=== PATIENT | female | born 1980 | race Caucasian/White ===

== ENCOUNTER 2017-07-14 12:38 | Day surgery (SDC) | payer OTHER, SELFPAY ==
[2017-07-12 09:06] VITALS: BMI 33.5
[2017-07-14] VITALS (9 sets, daily range): BP systolic 105–128; BP diastolic 69–79; PULSE 69–92; RESP 12–17; TEMP 36–36.9; O2SAT 93–100; BMI 33.0
--- NOTE | 2017-07-14 | PATH_ITS ---
[facility] Accession Number: [id number] . 01 Material submitted: . PART A: ANTERIOR LIP OF CERVIX PART B: POSTERIOR LIP OF CERVIX PART C: LEFT MARGIN PART D: RIGHT MARGIN . 02 Diagnosis: A. Cervix, Anterior Lip, LEEP Biopsy: Focal involvement by low-grade squamous intraepithelial lesion (LSIL/mild dysplasia/ITALO 1). The apparent, inked ectocervical and endocervical margins are negative for dysplasia. There is no evidence of high-grade dysplasia or invasive carcinoma. Changes consistent with previous instrumentation are present. Negative for p16 block immunostaining. . B. Cervix, Posterior Lip, LEEP Biopsy: Focal cytologic atypia suggestive of, but not diagnostic of, low-grade squamous intraepithelial lesion (LSIL/mild dysplasia/ITALO 1). The apparent, inked tissue margins are negative for regions concerning for dysplasia. There is no evidence of high-grade dysplasia or invasive tumor. Negative for p16 block immunostaining. . C. Left Margin, Excision: Squamous mucosa with reactive features; negative for dysplasia and malignancy. No transformation zone identified. Negative for p16 block immunostaining. . D. Right Margin: Focal involvement by low-grade squamous intraepithelial lesion (LSIL/mild dysplasia/ITALO 1). The apparent tissue margins are negative for dysplasia; electrocautery artifact is obscuring. Negative for high-grade dysplasia and invasive tumor. Changes consistent with previous instrumentation are present. Endocervical tissue / transformation zone is present. Negative for p16 block immunostaining. I/07/19/2017 . 02 Comment: This patient's previous Pap smear report ([id number]); 06/21/17) and biopsy reports and slides ([id number]; 07/03/17) are reviewed, and the severe dysplasia present on the previous Pap smear and in the previous biopsies is not identified in the current specimens. These findings do not entirely correlate. . 02 Electronically signed: . Mariluz Malave MD, Pathologist NPI- [id number] . 01 Gross description: . A. The specimen is received in a container of formalin, labeled with the patient's name, designated anterior lip of cervix. The specimen consists of a 1.6 x 1.3 x 0.9 cm portion of cervix. The mucosal surface is pink-theodore, smooth, slightly granular. The margins will be painted with black ink. The specimen is serially sectioned and entirely submitted in cassettes A1 and A2. B. The specimen is received in a container of formalin, labeled with the patient's name, designated posterior lip of cervix. The specimen consists of a focally fragmenting piece of cervical tissue without orientation, measuring 1.4 x 0.8 x 0.4 cm. The margins will be painted with blue ink. Entirely submitted in cassette B1. C. The specimen is received in a container of formalin, labeled with the patient's name, designated left margin. The specimen consists of an unoriented piece of cervix measuring 0.9 x 0.7 x 0.2 cm. The mucosal surface is smooth to slightly granular. The margins are painted with black ink. The specimen is serially sectioned and entirely submitted in cassette C1. D. The specimen is received in a container of formalin, labeled with the patient's name, designated right margin. The specimen consists of two pink-persaud strips of cervical tissue measuring 0.8 x 0.5 cm by less than 0.1 cm and 1.1 x 0.4 x 0.3 cm. The margins will be painted with black ink. The specimen is serially sectioned and entirely submitted in cassette D1. ([id number]) /FRR . 02 Microscopic: . An immunohistochemical stain was performed on blocks A1, A2, B1, C1, and D1 to evaluate for p16 and is negative for block immunostaining. The control stain shows appropriate reactivity. . The absence of p16 block immunostaining mitigates against the presence of high risk HPV DNA in these biopsies. . * This test was developed and its performance characteristics determined by [facility]. It has not been cleared or approved by the U.S. Food and Drug Administration. The FDA has determined that such clearance or approval is not necessary. This test is used for clinical purposes. It should not be regarded as investigational or for research. . . 02 Pathologist provided ICD-10: N87.0 . 02 CPT . 152797, 959288, 440036, 144923, T36303 Performed at: 01 [facility] [address] [id number] MD Madhav Adams MD Phone: [phone] Performed at: 02 [facility] [address] [place] [id number] MD Bob Garcia MD Phone: [phone]
[2017-07-14] MEDS: LACTATED RINGERS 1,000 ML 42 ML IV ×2 (15:30→16:07)
[2017-07-14] MEDS: SCOPOLAMINE 1 PATCH TOP (15:37)
--- NOTE | 2017-07-14 15:56 | SUR.OPER ---
Lithotomy on padded OR bed, head on gel donut on foam square, arms secured on padded arm boards at <90 degrees abduction. Legs secured in padded yellow fins stirrups.
--- NOTE | 2017-07-14 16:27 | PM.GYNOP.1 ---
Operative Date/Time/Diagnoses - Date of procedure: 07/14/17 Time of procedure: 16:27 Pre-op diagnosis: Cervical intraepithelial neoplasia three Post-op diagnosis: same Procedure: Procedures Operation Date: 07/14/17 14:00 Actual Procedures Side Surgeon p LEEP Procedure Jose Martin Batres MD Indications: Cervical intraepithelial neoplasia three no endocervical involved Anesthesia Type: General Operative Notes Findings: Circumferential lesion of ITALO three Closure Type: primary Specimen(s): other Estimated blood loss (mL): 100 Blood products transfused: none Procedure in detail: The patient was placed supine upon the operating table and anesthetized. She was then placed in the dorsal lithotomy position and draped repaired in usual fashion. A plastic size speculum was set in place and attached to vacuum. The cautery was set with a large loop. Using cutting current at 60 the anterior portion of the cervix was removed and sent for pathologic exam. This produced a fairly sizable bleeder. The bleeder was clamped and then doubly suture ligated with two 0 chromic suture. Subsequent LEEP procedures were done on the posterior lip and on right and left margins and all of these were sent for pathologic exam. There is was extensively cauterized. Because of small persistent bleeding for sterdorf type sutures were used of 0 chromic to make sure there was no further bleeding on the cervix. At the end of procedure the wound was entirely dry and there was no bleeding. Patient was taken to the recovery room in satisfactory condition. Complications: none Post-operative Condition: stable Disposition: PACU Plan for aftercare: Office Dr. Beard two weeks
[2017-07-14] MEDS: fentaNYL 100 MCG/2 ML INJ 50 MCG IV ×3 (16:28→16:44)
[2017-07-14] MEDS: OXYCODONE/ACETAMINOPHEN 5/325 TABLET 1 TAB PO (17:14)
--- NOTE | 2017-07-14 17:28 | SUR.PHASEII ---
IV d/c'd at 1721, cathetr
--- NOTE | 2017-07-14 17:31 | SUR.PHASEII ---
IV D\C'd at 1721, catheter ivana, pt. tolerated well.
--- NOTE | 2017-07-14 17:58 | SUR.PHASEII ---
Addendum prior to D/C: pt. beginning to get dressed, got up and stood and reported more bleeding that the last leep procedure Pt. requested to have Dr. Batres notified before she (the pt.) was d/c'd home. Placed call to Dr. Batres cellphone and was able to contact the DrLaney; this author reported pt. symptom of bleeding, pt's friend described it as a facet with a contant drip. Dr. Batres relayed to this author that he wants the pt. to go home and be on bedrest until bleeding minimal to none, and to have the pt. contact Dr. Batres if the pt. feels the need to do so. Pt. and friend agreed with Dr. Batres and feels comfortable enough to proceed with d/c home. Pt. given several XLG etra pads and disposable wipes to take home.
== END 2017-07-14 18:06 | disposition home or self-care (01) ==
PROC: 0UBC7ZZ Excision of Cervix, Via Natural or Artificial Opening (ICD-10-PCS; CPT 57522; principal; 2017-07-14 14:00)
DX: N87.0 Mild cervical dysplasia (principal)
CPT/HCPCS: 57522; 88305; 88307; 88342; J1100; J1885; J2405; J2704; J3010

== ENCOUNTER 2018-01-25 08:20 | Day surgery (SDC) | payer OTHER, SELFPAY ==
[2018-01-24 12:23] VITALS: BMI 29.9
[2018-01-25] VITALS (8 sets, daily range): BP systolic 96–120; BP diastolic 59–76; PULSE 55–76; RESP 8–16; TEMP 36.2–36.9; O2SAT 96–100; BMI 29.9
--- NOTE | 2018-01-25 | PATH_ITS ---
[facility] Accession Number: [id number] . 01 Material submitted: . CERVIX . 02 Diagnosis: Cervix, LEEP Biopsy: High-grade squamous intraepithelial lesion (HSIL/moderate-severe dysplasia/ITALO 2-3) with gland neck involvement is present in the non-sutured tissue fragments designated endocervix on requisition. HSIL focally involves the peripheral and deep margins in one endocervical tissue fragment. At least low grade squamous intraepithelial lesion (LSIL / mild dysplasia / ITALO I) is present in both the 9 to 12 o'clock and the 12 to 3 o'clock quadrants. Please see comment. No invasive tumor identified. Changes consistent with previous instrumentation are present in the oriented tissue fragments. MRV/01/29/2018 . 02 Comment: Findings discussed with Dr. Iza Sheets on 01/29/2018 at approximately 11:20 a.m. No further characterization (i.e. p16 IHC) is necessary at this time. . This patient's previous Pap smear report ([id number], 06/21/2017) is reviewed, and the severely dysplastic cells present on the previous Pap smear could derive from the current biopsy tissue. These findings do correlate. . 02 Electronically signed: . Mariluz Malave MD, Pathologist NPI- [id number] . 01 Gross description: . Received in formalin, labeled LEEP cone biopsy: anterior cervix-long stitch 12 o'clock, posterior cervix short stitch 6 o'clock, unmarked piece: endocervix, are four pieces of surgical tissue. Piece #1 (1.2 cm 12 o'clock to 6 o'clock, 2.2 cm 3 o'clock to 9 o'clock, 0.2 cm superficial to deep) contains a two-tailed long black suture indicating 12 o'clock. The mucosa is theodore-pink smooth and shiny. The resection margin is pale persaud and finely granular. No nodules, masses or lesions are identified. Ink code: black-deep; blue-radial; orange-os/endocervical canal. Section code: Radially sectioned and entirely submitted clockwise from 9 o'clock-(A1) 9 o'clock to 12 o'clock; (A2) 12 o'clock to 3 o'clock. . Piece #2 (2.1 x 0.3 x 0.1 cm) contains a two-tailed black short suture indicating 6 o'clock. The specimen is ragged and difficult to tell the radial orientation. The mucosa is pale theodore-white and dull. The resection margin is pale theodore-persaud and finely granular. No nodules, masses or lesions are identified. The ectocervical and endocervical margins cannot be determined, therefore, the resection margin is inked black. Serially sectioned and entirely submitted in cassettes A3-A4, the half with the suture is in A4. Note: The specimen is partially friable and fragmented upon sectioning. . Piece #3 (1.2 x 0.5 x 0.2 cm) and piece #4 (1.5 x 0.7 x 0.3 cm) are unoriented and have persaud-pink finely granular surfaces. No nodules, masses or lesions are identified. The tissue cannot be oriented, therefore, the resection margins are inked black. Serially sectioned and entirely submitted in cassettes A5 and A6, respectively. ([id number]) /[facility] . 02 Pathologist provided ICD-10: N87.1 . 02 CPT . 107209 Performed at: [address] [facility] [address] [id number] MD Madhav Adams MD Phone: [phone] Performed at: 02 [facility] [address] [place] [id number] MD Keren Champagne MD Phone: [phone]
[2018-01-25] MEDS: LACTATED RINGERS 1,000 ML 42 ML IV (08:32)
--- NOTE | 2018-01-25 09:45 | PM.PREOP ---
Pre-operative Note Interval Note Pre-op Check: Yes History & Physical exam performed today by Physician Changes: No
--- NOTE | 2018-01-25 09:45 | PM.HP.1 ---
History of Present Illness Date Patient Seen: 01/25/18 Time Patient Seen: 09:45 Chief complaint: 10017 LEEP; DX R87.63 Narrative: Patient is a 37-year-old with high-grade GILBERT on Pap with no corresponding dysplasia on colposcopic biopsy Patient has had a previous LEEP cone biopsy of the cervix Patient History Medical History GERD (gastroesophageal reflux disease) (Chronic ~2005) Heavy menstrual period (Chronic ~2012) Migraine headache without aura (Chronic ~1988) Abnormal Pap smear of cervix (Resolved ~2004) ITALO III (cervical intraepithelial neoplasia III) (Resolved) Chicken pox (Resolved ~1989) HPV test positive (Resolved ~2004) Surgical History History of colposcopy (Acute) H/O LEEP (Resolved ~09/2012) History of arthroscopic knee surgery (Resolved ~10/1997) H/O LEEP (Inactive) Family & Social History Social History: household members children lives independently Yes Tobacco & Substance use: Smoking Status Never smoker Meds Home Medications Medication Instructions Recorded Confirmed Type levonorgestrel 20 mcg/24 hr (5 INTRAUTERINE each 09/04/17 01/16/18 History years) intrauterine device Allergies Allergy/AdvReac Type Severity Reaction Status Date / Time hydromorphone [From Dilaudid] AdvReac Severe Vomiting Verified 01/16/18 15:05 Exam Vital Signs (past 8 hours): - 01/25/18 08:33 Temperature 98 F Pulse Rate 76 Respiratory Rate 12 Blood Pressure 120/76 Pulse Oximetry 98 Oxygen Delivery Method Room Air Narrative Exam Narrative: HEENT: No thyromegaly, no anterior cervical or supraclavicular lymphadenopathy. Lungs:Clear to auscultation bilaterally, no wheezes. Cardiovascular: Regular rate and rhythm, no murmurs, rubs, or gallops. Abdomen: No scars. No hepatosplenomegaly. No masses palpable. External genitalia: Normal Vagina: Normal Cervix: Status post LEEP Bimanual exam: 7 Week size uterus. Mobile. Rectal: No masses. Assessment & Plan (1) HGSIL (high grade squamous intraepithelial dysplasia): Current visit: Yes Status: Acute Plan: Assessment/Plan Narrative: Assessment: 37 year old with HGSIL on PAP and no corresponding findings on colposcopic biopsy Plan: LEEP cone biopsy of the cervix The risks, benefits, and alternatives to the procedure were explained to the patient. The risks including bleeding and infection. She understands these risks and agrees to proceed. A full PAR-Q was held and consent form was signed.
[2018-01-25] MEDS: SCOPOLAMINE 1 PATCH TOP (09:46)
--- NOTE | 2018-01-25 10:14 | SUR.OPER ---
Lithotomy on padded OR bed, head on pillow, arms secured on padded arm boards at <90 degrees abduction. Legs secured in padded yellow fins stirrups.
[2018-01-25] MEDS: POTASSIUM IODIDE/IODINE 473 ML SOLUTION TOP (10:21)
[2018-01-25] MEDS: fentaNYL 100 MCG/2 ML INJ 50 MCG IV (11:12)
--- NOTE | 2018-01-25 11:32 | SUR.PHASEII ---
PT ARRIVED TO PHASE II VIA STRETCHER. PT SITTING UP AND TALKING TO RN. PT FRIEND BROUGHT TO BEDSIDE. PT DENIES ANY PAIN/DISCOMFORT AT THIS TIME. PT DENIES ANY NAUSEA. JOLLY-PAD OBSERVED TO C/D/I. PT SITTING UP AND SIPPING ON ERIKA FERMIN. PT APPEARS COMFORTABLE AT THIS TIME. BED IN LOWEST POSITION AND CALL LIGHT GIVEN TO PT.
--- NOTE | 2018-02-23 15:46 | P.OP_ITS ---
Operative Date/Time/Diagnoses Date of procedure: 01/29/18 Time of procedure: 10:30 Pre-op diagnosis: ITALO 3 Post-op diagnosis: same Procedure: Procedures Operation Date: 01/25/18 09:45 Actual Procedures Side Surgeon p LEEP cone biopsy cervix Iza Sheets MD Indications: ITALO 3 Surgeon: Iza Sheets Anesthesia Type: General (LMA) Operative Notes Findings: Lugol's light area circumferentially around the cervical os Closure Type: not applicable Specimen(s): other (Anterior lip with long suture, Posterior lip with short suture) Estimated blood loss (mL): 10 Blood products transfused: none Procedure in detail: After informed consent was obtained, the patient was taken to the operating room where she was placed in the dorsal supine position. After LMA general anesthesia was obtained, the patient was placed in the dorsal lithotomy position and prepped and draped in the usual sterile fashion. A timeout was performed. A platic-coated bivalved speculum was placed into the vagina and a plastic-coated single-toothed tenaculum was placed on the anterior lip of the cervix. Lugol's solution was applied to the cervix. There was a Lugol 's light area surrounding the cervical os. The anterior lip of the cervix was excised using the large loop. This piece was tagged with a long suture. The posterior lip of the cervix was excised and was tagged with a short suture. The ball cautery was used for hemostasis. Sponge, lap, and instrument counts were correct x2. The patient tolerated the procedure well, and was taken to PACU in stable condition. Complications: none Post-operative Condition: stable Disposition: PACU Plan for aftercare: Home after recovery
== END 2018-01-25 12:01 | disposition home or self-care (01) ==
PROVIDERS: Visit Provider Obstetrics & Gynecology
PROC: 0UBC7ZZ Excision of Cervix, Via Natural or Artificial Opening (ICD-10-PCS; CPT 57522; principal; 2018-01-25 09:45)
DX: N87.1 Moderate cervical dysplasia (principal); G43.909 Migraine, unspecified, not intractable, without status migrainosus
CPT/HCPCS: 57522; J1100; J1885; J2250; J2405; J2704; J3010

== ENCOUNTER 2018-04-06 08:26 | Day surgery (SDC) | payer OTHER, SELFPAY ==
[2018-04-06] VITALS (18 sets, daily range): BP systolic 104–130; BP diastolic 60–79; PULSE 51–73; RESP 12–18; TEMP 36.3–36.8; O2SAT 97–100; BMI 28.8
--- NOTE | 2018-04-06 | PATH.2_ITS ---
[facility] Accession Number: [id number] . 01 Material submitted: . UTERUS WITH BOTH FALLOPIAN TUBES . 02 Diagnosis: Uterus and Bilateral Fallopian Tubes, Laparoscopic Assisted Vaginal Hysterectomy with Bilateral Salpingectomy (weight 158 grams): Mild patchy involvement by low-grade squamous intraepithelial lesion (LSIL/mild dysplasia/ITALO 1). Negative for residual high-grade squamous intraepithelial lesion and negative for invasive tumor. Negative for p16 block immunostaining. Changes consistent with previous instrumentation are present. Endometrial cavity with a T-shaped IUD by gross examination. Myometrium with no significant histomorphologic abnormality. Uterine serosa with no significant histomorphologic abnormality. Two Fallopian tubes with no significant histomorphologic abnormality. BFI/04/13/2018 . 02 Comment: This patient's previous biopsy ([id number]; 01/25/18) was reviewed and findings regarding HSIL involvement at peripheral and deep margins were confirmed. . 02 Electronically signed: . Mariluz Malave MD, Pathologist NPI- [id number] . 01 Gross description: . . Received in formalin, labeled uterus + both fallopian tubes, is a uterus (158 g, 5.2 cm AP, 9.5 cm SI, 6.1 cm ML) with attached fimbriated fallopian tubes (right: Length-5.2 cm, diameter-0.5 cm; left: Length-5.3 cm, diameter-0.5 cm). The ovaries are absent. The cervix (3.1 cm AP, 3.7 cm ML) has a vaginal cuff (up to 1.5 cm in depth), a transverse os, and a patent endocervical canal. The endometrial cavity contains a white plastic, T-shaped IUD. The endometrium (average thickness-0.1 cm) is persaud-pink, smooth, and flat. The myometrium (thickness-2.4 cm) is persaud-white and unremarkable. The serosa is theodore-persaud, smooth, and shiny. The fallopian tubes have theodore-purple, smooth, shiny serosa and persaud unremarkable lumens. Section code: (A1) anterior cervix; (A2) posterior cervix; (A3-A4) anterior endomyometrium; (A5, A6) posterior endomyometrium; (A7) right fallopian tube, product representative serial section; (A8) right fimbria, bivalved, entirely submitted; (A9) left fallopian tube, product representative serial section; (A10) left fimbria, bivalved, entirely submitted. (:[id number]) . Additional sections: The remaining cervix is radially sectioned and entirely clockwise from 12 o'clock - (A11-A15) 12 o'clock to 3 o'clock; (A16-A21) 3 o'clock to 6 o'clock; (A22-A26) 6 o'clock to 9 o'clock; (A27-A32) 9 o'clock to 12 o'clock. The cervix is now entirely submitted. (:cmc10 [id number]) /FRR . 02 Microscopic: . An immunohistochemical stain was performed to evaluate for p16 on blocks A2, A16, A23, and A26, and each stain is negative for block immunostaining. The control stain shows appropriate reactivity. . The absence of p16 block immunostaining mitigates against the presence of high risk HPV DNA in this biopys. . * This test was developed and its performance characteristics determined by [facility]. It has not been cleared or approved by the U.S. Food and Drug Administration. The FDA has determined that such clearance or approval is not necessary. This test is used for clinical purposes. It should not be regarded as investigational or for research. . . 02 Pathologist provided ICD-10: N87.0 . 02 CPT . 289638, S07283, S25456 Performed at: 01 [facility] [address] [place] [address], [place], [place] [id number] MD Madhav Adams MD Phone: [phone] Performed at: 02 [facility] [address] [place], [place] [id number] MD Keren Champagne MD Phone: [phone]
--- NOTE | 2018-04-06 07:56 | PM.PREOP ---
Pre-operative Note Interval Note History & Physical reviewed/Exam performed by Physician: Yes Changes to H&P: No
[2018-04-06] MEDS: LACTATED RINGERS 1,000 ML 42 ML IV ×3 (09:05→13:53)
[2018-04-06] MEDS: SCOPOLAMINE 1 PATCH TOP (10:16)
[2018-04-06] MEDS: MIDAZOLAM 2 MG/2 ML VIAL IV (10:22)
[2018-04-06] MEDS: CEFAZOLIN 2 GM/100 ML FROZ.PIGGY IV (10:23)
--- NOTE | 2018-04-06 10:27 | SUR.PREOP ---
1022 Rx given per anesthesia after Dr. Sheets spoke with the patient. Continuous pulse ox on prior to administration. Patient remains sitting up, talking with friend. Had nausea with she stated was related to anxiety. States that she feels better after the rx.
--- NOTE | 2018-04-06 10:55 | SUR.PREOP ---
Patient stated on arrival that she was currently on her period and that she removed her tampon.This was reported to the sewing machine operator floorperson prior to taking the patient into the room.
--- NOTE | 2018-04-06 11:14 | SUR.OPER ---
Lithotomy on padded OR bed. [place] Pad Positioner under torso. Head on pillow, arms padded and tucked at sides. Legs secured in padded yellow fins stirrups.
[2018-04-06] MEDS: BUPIVACAINE 0.5% W/ EPI (PF) VIAL 30 ML INJ (11:33)
[2018-04-06] MEDS: fentaNYL 100 MCG/2 ML INJ 50 MCG IV ×2 (12:29→12:40)
[2018-04-06] MEDS: HYDROMORPHONE 2 MG INJ 0.25 MG IV ×8 (12:45→13:25)
[2018-04-06] MEDS: LORazepam 2 MG/ML SYRINGE 0.5 MG IV ×2 (12:54→13:16)
[2018-04-06] MEDS: OXYCODONE/ACETAMINOPHEN 5/325 TABLET 2 TAB PO ×3 (13:48→18:31)
[2018-04-06] MEDS: LACTATED RINGERS 1,000 ML 100 ML IV (14:39)
--- NOTE | 2018-04-06 15:02 | PC.NURSE ---
Pt admitted to floor aroung 1400. Pt had lap hysterectomy. 3 small incisions cdi. Pt given 2 percocet down in pacu and denies pain at this time. She has a warm pack in place and states that she is only having some mild cramping. IV to L.hand with LR at 100cc/hr. SCDs in place. Pt denies nausea and has a scop patch in place. She is comfortable and visiting with her friends at this time.
[2018-04-06] MEDS: KETOROLAC 30 MG/ML VIAL IV (18:24)
[2018-04-06] MEDS: DOCUSATE 250 MG CAPSULE PO (20:42)
[2018-04-07 00:20] VITALS: BP 110/60; PULSE 55; RESP 17; TEMP 36.7; O2SAT 98
[2018-04-07] MEDS: OXYCODONE/ACETAMINOPHEN 5/325 TABLET 2 TAB PO ×4 (00:22→11:46)
[2018-04-07] MEDS: KETOROLAC 30 MG/ML VIAL IV ×2 (00:23→06:37)
[2018-04-07] MEDS: LACTATED RINGERS 1,000 ML 100 ML IV (00:33)
[2018-04-07 04:33] VITALS: BP 101/64; PULSE 56; RESP 17; TEMP 36.6; O2SAT 98
--- NOTE | 2018-04-07 05:06 | PC.NURSE ---
Pt hypotensive and janet per baseline per patient. She rates pain 6/10 and requested two prn Percocet to be given as written q 4 hours, and to wake her up. No drainage this shift. Voiding qs clear yellow. A and O x 4.
[2018-04-07 05:16] LABS: Add Manual Diff / Slide Review NO; Basophils Absolute Auto 0 /uL (0-100); Basophils Percent Auto 0.1 % (0-2); Eosinophils Absolute Auto 0 /uL (0-450); Eosinophils Percent Auto 0.1 % (2-4); Hematocrit 38.5 % (36-46); Hemoglobin 12.3 g/dL (12.0-16.0); Lymphocytes Absolute Auto 1300 /uL (1100-4500); Lymphocytes Percent Auto 10.9 % (25-40); Mean Corpuscular Hemoglobin 24.6 PG (26-34); Mean Corpuscular Volume 76.8 fL (80-100); Monocytes Absolute Auto 700 /uL (0-900); Monocytes Percent Auto 5.4 % (3-14); Neutrophils Absolute Auto 10200 /uL (1500-7000); Neutrophils Percent Auto 83.5 % (50-75); Platelet Count 293 X10^3/uL (150-400); Red Blood Cell Count 5.01 X10^6/uL (4.0-5.2); Red Cell Distribution Width 15.2 % (11.6-14.8); White Blood Cell Count 12.2 X10^3/uL (4.5-11.0)
[2018-04-07 08:37] VITALS: BP 99/49; PULSE 52; RESP 16; TEMP 36.3; O2SAT 97
[2018-04-07] MEDS: DOCUSATE 250 MG CAPSULE PO (09:52)
--- NOTE | 2018-04-07 10:26 | CM.DANOTE ---
[facility] Chart Review/Assessment Patient is a 37 year old female who was admitted on 04/06/18 for [facility]. Pt has [employer] for insurance and her PCP is not listed. EMR was reviewed. Per MD, pt tolerated surgical procedure well by Dr. Sheets and is medically stable to d/c home today with friend support and no identified barriers to discharge. Per licensed reactor operator, no concerns with d/c home today at this time. No SW assessment needed at this time and triage needs prohibited bedside assessment. Plan: Patient to d/c home today via family/friend POV and no SW needs at this time. Please refer if indicated. DARLIN Hart
--- NOTE | 2018-04-07 11:10 | PC.NURSE ---
Pt. up to shower with assistance from friend w/o alicia. Dressed and ready to be discharged.
--- NOTE | 2018-04-07 12:03 | PC.NURSE ---
Hep lock removed without difficulty. Cathetor tip intact. 4 x 4 drsg applied with tape. Discharge orders given and reviewed, with pt. understanding. Comfortable, eating lunch and waiting for friend to come pick her up.
--- NOTE | 2018-04-09 06:53 | PM.GYNOP.1 ---
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 After adequate general endotracheal anesthesia was achieved, she was placed in the dorsal lithotomy position, and prepped and draped in the usual sterile fashion. A timeout was performed. A bivalve speculum was placed into the vagina, and a single-tooth tenaculum was placed on the anterior lip of the cervix. The cervical os was sequentially dilated until the ZUMI uterine manipulator could pass easily into the endometrial cavity. The single-tooth tenaculum was removed from the anterior lip of the cervix, and the bivalve speculum was removed from the vagina. Attention was then turned to the abdomen where 6 mL of half percent Marcaine with epinephrine were injected in the umbilical fold. A 5 mm incision was made. The Verhees needle was placed into the peritoneal cavity, and its placement confirmed by aspiration and drop test. The abdominal cavity was insufflated with 4 L of CO2. The Verhees needle was removed, and a 5 mm trocar was placed without difficulty. Initial inspection of the pelvis revealed the findings noted above. 2 other incisions were made midway between the pubic symphysis and umbilicus 4 cm lateral to the midline. These were 5 mm incisions. Two 5 mm trochars were placed under direct visualization. The right tube was grasped with an atraumatic grasper. The uteroovarian ligament on the right side was cauterized and cut with plasma kinetic. The round ligament and broad ligament were cauterized and cut. This was continued to the level of the uterine arteries. This was repeated on the patient's left side. The instruments were removed from the abdomen. Attention was then turned to the vagina where the ZUMI uterine manipulator was removed from the uterus. The cervix was grasped with a 4 tooth tenaculum. 10 mL of quarter percent Marcaine with epinephrine were injected circumferentially around the cervix. The cervix was circumscribed. The bladder and rectum were dissected off the lower uterine segment and cervix with an open moistened Ray-Haider. The peritoneum was entered sharply with the Metzenbaum scissors anteriorly and a Nora placed. The peritoneum was entered posteriorly with the Metzenbaum scissors and the long weighted speculum was placed into the posterior cul-de-sac. The uterosacral cardinal ligament complexes were clamped, transected, and suture ligated with 0 Vicryl. These were attached to hemostats. The uterine arteries were clamped, transected, and suture ligated with 0 Vicryl. The uterus was handed off for specimen with the tubes. The peritoneum was closed with a pursestring suture with 2-0 Vicryl. The vaginal cuff was closed with 0 Vicryl with a series of simple interrupted sutures. The tagged sutures were cut. All of the pedicles were hemostatic. All of the tagged sutures were cut. A Betadine moist vaginal packing was placed into the vagina. Attention was then turned to the after gloves were changed. Inspection of the pelvis with the laparoscoped revealed no bleeding. All of the pedicles were hemostatic. The instruments were removed from the abdomen. CO2 was allowed to escape. The incisions were closed with 4 0 undyed Vicryl in a subcuticular fashion. Steri-Strips, 2 x 2, and op site were placed. Complications: none Post-operative Condition: stable Disposition: PACU Plan for aftercare: To acute care after recovery
--- NOTE | 2018-04-09 07:03 | PM.DS.1 ---
History of Present Illness Date Patient Seen: 04/07/18 Time Patient Seen: 07:40 Chief complaint: [id number] Narrative: Patient is a 37-year-old 3 para 3 postop day # 1 status post laparoscopic-assisted vaginal hysterectomy with bilateral salpingectomy secondary to recurrent ITALO 3. Patient did well overnight. No nausea or vomiting. Pain is well controlled with Toradol oral Percocet. She has tolerated a diet. Discharge Providers Date of admission: 04/06/2017 Discharge provider: Iza Sheets MD Discharge Date: 04/07/18 Summary Discharge Diagnosis: Recurrent ITALO 3 Status post LEEP cone biopsy of the cervix x2 Status post LAVH/bilateral salpingectomy Hospital Course: The patient was admitted on 04/06/2018 for scheduled laparoscopic-assisted vaginal hysterectomy with bilateral salpingectomy. She underwent this procedure without complication. On postop day # 1, her Cevallos catheter was removed. Vaginal packing was removed. Patient was able to void without the catheter. She was tolerating a diet and controlling her pain with oral pain medication and Toradol. Status at Discharge Functional status at discharge: independent ambulation Overall status at discharge: patient is progressing back to baseline Time Spent with Patient Less than 30 minutes Exam Vital Signs (past 8 hours): Oxygen Delivery Method Room Air Oxygen Flow Rate 0 Narrative Exam Narrative: Generally: Patient is sitting up in bed, no acute distress Lungs: Clear to auscultation bilaterally Cardiovascular: Regular rate and rhythm Abdomen: Soft and flat. Good bowel sounds. Incisions: Clean dry and intact with op site Perineum: Small amount of old blood Extremities: Negative Homans, no edema Objective Labs Result Diagrams: 04/07/18 04:50 Discharge Plan Discharge Plan Patient Disposition: Home Discharge comment: Call with fever, chills, redness or drainage around incisions or bleeding vaginally more than light Discharge Med Rec/Prescriptions Prescriptions: New oxycodone-acetaminophen [Percocet] 5-325 mg tablet 1 tab PO Q4-6H PRN (Reason: pain) Qty: 30 RF: 0 Follow up/Referrals: Iza Sheets MD [Physician] - 2 Weeks Discharge Orders: Discharge (Order); Ordered 04/07/18 Ordered By: Iza Sheets Provider Discharge Instructions Diet: Diet as Tolerated Activity: No heavy lifting Skin/Wound/Dressing Care Report to your healthcare provider any signs of infection, such as:: chills, fever, increased pain, unusual drainage and unusual redness Dressing: Remove outer op sites and guaze after first shower. Leave steri strips in place Visit Report/Discharge Packet Instructions: DI for Hysterectomy, DI for Laparoscopy, Oxycodone Stand Alone Forms: Surgery Discharge Discharge Data Attending Provider: Iza Sheets Discharges patient from system. Discharge Date/Time: 04/07/18 12:20
== END 2018-04-07 12:20 | disposition home or self-care (01) ==
LOC: OR 10:52 → AC 14:12
PROVIDERS: Visit Provider Obstetrics & Gynecology
PROC: 0UT9FZZ Resection of Uterus, Via Natural or Artificial Opening With Percutaneous Endoscopic Assistance (ICD-10-PCS; CPT 58542; principal; 2018-04-06 10:00)
DX: N87.0 Mild cervical dysplasia (principal)
CPT/HCPCS: 58542; 36415; 85025; J0690; J1100; J1170; J1885; J2060; J2250; J2704; J3010

== ENCOUNTER → 2020-11-20 12:00 | Outpatient (ROUT) | payer SELFPAY ==
[2018-04-06 14:41] VITALS: BMI 28.8
[2020-11-20 12:01] LABS: Urine Drug Scr, Empl Non-NIDA See Separate Report
== END ==
DX: Z02.1 Encounter for pre-employment examination (principal)
CPT/HCPCS: 81099